=== PATIENT | male | born 1990 | race Caucasian/White ===

== ENCOUNTER 2019-08-17 06:30 | Emergency (ER) | payer SELFPAY ==
[2019-08-17 06:30] VITALS: BP 144/88; PULSE 92; RESP 18; TEMP 36.3; O2SAT 100; BMI 23.6
--- NOTE | 2019-08-17 06:39 | ECG_ITS ---
Measurements Intervals [place] Rate: 84 P: 79 MO: 143 QRS: 88 QRSD: 88 T: 62 QT: 361 QTc: 429 SINUS RHYTHM No previous ECG available for comparison Electronically Signed On 08-17-2019 19:21:17 LEARNING SUPPORT ASSISTANT by Acosta Oleary M.D. [email or web address]
--- NOTE | 2019-08-17 06:39 | XR_ITS ---
WS: [id number] CHEST 2 VIEWS HISTORY: chest pain COMPARISON: 10/24/2010 Lungs: Clear with no abnormality. No pleural effusion or pneumothorax. Cardiac size: Normal. Mediastinum/Aorta: Normal mediastinum. Bones: Normal. XR/XR chest 2V* [id number] IMPRESSION: Normal chest.
--- NOTE | 2019-08-17 06:42 | ED_ITS ---
HPI - Chest Pain General: Chief Complaint: Chest Pain Stated Complaint: chest pain Time Seen by Provider: 08/17/19 06:38 Review of Systems General: Reports: 10 or more systems reviewed and unremarkable except in HPI and below PFSH ED PFSH: Statuses (acute, chronic, etc) shown below reflect problem list status as previously entered and may not be historically accurate Social History Smoking and tobacco status: current every day smoker Physical Exam Const: COMMON NORMALS: average body habitus, oriented x3 and alert GENERAL APPEARANCE: well developed and anxious HENMT: COMMON NORMALS: normocephalic, head/scalp atraumatic, external ears normal and external nose normal HEAD & SCALP: normocephalic and atraumatic FACE & SINUS: normal facial exam NOSE: external nose normal EXTERNAL EAR: Yes external ears normal MOUTH: oral and palatal mucosa normal Neck/C-Spine: COMMON NORMALS: full ROM, no lymphadenopathy, supple, no meningeal signs and no JVD GENERAL: Yes normal visual inspection Chest: COMMONS NORMALS: inspection of chest normal and palpation of chest normal Resp: COMMON NORMALS: normal respiratory effort, no retractions, no use of accessory muscles, clear to auscultation bilaterally and percussion normal EFFORT & INSPECTION: Yes able to speak in complete sentences AUSCULTATION: clear to auscultation bilaterally PERCUSSION: percussion normal Cardio: COMMON NORMALS: no JVD, regular rate, regular rhythm, S1 normal heart sound and S2 normal heart sound JUGULAR VENOUS DISTENTION: no JVD RATE: regular rate RHYTHM: regular rhythm HEART SOUNDS: S1 normal and S2 normal GI: COMMON NORMALS: normal to inspection, nondistended, normoactive bowel sounds, soft to palpation, non-tender, no hepatosplenomegaly, no masses and no bruits PALPATION: Yes soft and Yes no hepatosplenomegaly : COMMON NORMALS: Yes no CVA tenderness BLADDER/KIDNEY EXAM: Yes no CVA tenderness Back/Pelvis: COMMON NORMALS: no CVA tenderness, thoracic and lumbar spine normal to inspection, no thoracic nor lumbar tenderness and thoraco-lumbar ROM normal Neuro: COMMON NORMALS: oriented x3 SENSORIUM/ORIENTATION: Yes alert MENINGEAL SIGNS: Yes no meningeal signs Psych: COMMON NORMALS: mental status grossly normal, thought process normal and cooperative MOOD & AFFECT: Yes anxious THOUGHT PROCESS: normal thought process Skin: COMMON NORMALS: no rashes or lesions noted, no wounds, skin turgor normal, no jaundice, no petechiae and no mottling GENERAL SKIN EXAM: no rashes or lesions noted and turgor normal Course Vital Signs: Vital signs: Vital Signs Temperature 97.3 F L 08/17/19 06:30 Pulse Rate 86 08/17/19 06:46 Respiratory Rate 21 H 08/17/19 06:46 Blood Pressure 144/88 08/17/19 06:46 Pulse Oximetry 100 08/17/19 06:48 MDM - Chest Pain Lab Data: Labs: Lab Results 08/17/19 08/17/19 08/17/19 Range/Units 06:55 07:35 07:35 WBC 9.1 (4.0-10.0) 10^3/ uL RBC 5.34 H (4.1-5.3) 10^6/u L Hgb 15.1 (11.7-16.6) g/dL Hct 45.3 (42.0-52.0) % MCV 84.8 (80-94) fL MCH 28.3 (28.0-34.0) pg MCHC 33.3 (30.0-36.0) g/dL RDW 14.7 (12.1-15.1) % Plt Count 218 (130-400) 10^3/c mm MPV 10.7 H (7.4-10.4) fL Neut % (Auto) 63.2 % Lymph % (Auto) 27.2 % [place] % (Auto) 8.0 % Eos % (Auto) 0.9 % Baso % (Auto) 0.5 % Neut # (Auto) 5.8 (1.8-7.7) 10^3/u L Lymph # (Auto) 2.5 (0.8-4.8) 10^3/u L [place] # (Auto) 0.7 (0.2-0.9) 10^3/u L Eos # (Auto) 0.1 (0.0-0.8) 10^3/u L Baso # (Auto) 0.1 (0.0-0.1) 10^3/u L Nucleated RBC % (a uto) 0 % Nucleated RBCs # 0.0 /100WBC D-Dimer <= 0.27 (0-0.59) ug/mIFE U Sodium 138 (136-145) mmol/L Potassium 3.6 (3.5-5.1) mmol/L Chloride 103 (98-107) mmol/L Carbon Dioxide 24 (22-29) mmol/L Anion Gap 14.6 (5-19) BUN 18 (6-20) mg/dL Creatinine 1.1 (0.7-1.2) mg/dL GFR Calculation 79.7 L (90-130) mL/min Glucose 98 (74-109) mg/dL Calcium 9.8 (8.6-10.0) mg/Dl Total Bilirubin 0.7 (0.15-1.2) mg/dL AST 15 (0-40) U/L ALT 11 (0-41) U/L Alkaline Phosphata se 46 (40-130) IU/L Total Protein 6.2 L (6.6-8.7) g/dL Albumin 4.4 (3.5-5.2) g/dL Globulin 1.8 (1.3-4.6) g/dL Discharge Plan Discharge Patient Disposition: Home, Self-Care Clinical Impression: Atypical chest pain, Costalchondritis Condition: Stable Prescriptions: New Robaxin-750 750 mg tablet 750 mg PO Q8H Qty: 14 RF: 0 Discharge Orders: Discharge Order (Routine); Ordered 08/17/19 Ordered By: Lorenzo Etienne Referrals: Fan Pablo Jr, MD [Primary Care Provider] - Discharge Diet: Usual diet Discharge Activity: Resume usual activity Coding Level of Care Code ED Assistant Professor Nurse Education for Eileen Cordon
[2019-08-17 06:46] VITALS: BP 144/88; PULSE 86; RESP 21; O2SAT 100
[2019-08-17 06:48] VITALS: O2SAT 100
[2019-08-17] MEDS: ketorolac 30 mg/mL INJ IVP (06:53)
[2019-08-17 07:20] LABS: Basophils # 0.1 10^3/uL (0.0-0.1); Basophils % 0.5 %; Eosinophils # 0.1 10^3/uL (0.0-0.8); Eosinophils % 0.9 %; Hematocrit 45.3 % (42.0-52.0); Hemoglobin 15.1 g/dL (11.7-16.6); Lymphocytes # 2.5 10^3/uL (0.8-4.8); Lymphocytes % 27.2 %; Mean Corpuscular HGB Conc 33.3 g/dL (30.0-36.0); Mean Corpuscular Hemoglobin 28.3 pg (28.0-34.0); Mean Corpuscular Volume 84.8 fL (80-94); Mean Platelet Volume 10.7 fL (7.4-10.4); Monocytes # 0.7 10^3/uL (0.2-0.9); Neutrophils # 5.8 10^3/uL (1.8-7.7); Neutrophils % 63.2 %; Nucleated Red Blood Cells % 0 %; Platelet Count 218 10^3/cmm (130-400); Red Blood Count 5.34 10^6/uL (4.1-5.3); Red Cell Distribution Width 14.7 % (12.1-15.1); White Blood Count 9.1 10^3/uL (4.0-10.0)
--- NOTE | 2019-08-17 07:36 | PC.NURSE ---
Lab as exited the room and stated the patient is upset over blood collection. Blood collected from IV site without incident. The patient would like to make a complaint. Charge nurse matthew notified.
[2019-08-17 07:54] LABS: D Dimer <= 0.27 ug/mIFEU (0-0.59)
[2019-08-17 07:56] LABS: Alanine Aminotransferase 11 U/L (0-41); Albumin Level 4.4 g/dL (3.5-5.2); Alkaline Phosphatase 46 IU/L (40-130); Anion Gap 14.6 (5-19); Aspartate Amino Transferase 15 U/L (0-40); Blood Urea Nitrogen 18 mg/dL (6-20); Calcium 9.8 mg/Dl (8.6-10.0); Carbon Dioxide 24 mmol/L (22-29); Chloride 103 mmol/L (98-107); Globulin 1.8 g/dL (1.3-4.6); Glomerular Filtration Rate 79.7 mL/min (90-130); Glucose 98 mg/dL (74-109); Potassium 3.6 mmol/L (3.5-5.1); Sodium 138 mmol/L (136-145); Total Bilirubin 0.7 mg/dL (0.15-1.2); Total Protein 6.2 g/dL (6.6-8.7)
== END 2019-08-17 08:39 | disposition home or self-care (01) ==
PROVIDERS: Emergency Provider Family Medicine; PCP Pediatrics Adolescent Medicine
DX: R07.89 Other chest pain (principal); M94.0 Chondrocostal junction syndrome [Tietze]; F17.210 Nicotine dependence, cigarettes, uncomplicated
CPT/HCPCS: 71046; 80053; 85025; 85378; 93005; 99281; J1885

== ENCOUNTER 2019-09-21 09:42 | Emergency (ER) | payer SELFPAY ==
[2019-09-21 10:05] VITALS: BP 159/91; PULSE 84; RESP 16; TEMP 36.6; O2SAT 98; BMI 22.8
--- NOTE | 2019-09-21 10:24 | W.ED.GENADLT ---
HPI - General Adult General: Chief complaint: Headache Stated complaint: Headache Time Seen by Provider: 09/21/19 10:15 History of Present Illness: HPI narrative: Patient complains of headache that started about 3 to 4 days ago. Got feel little bit better and then had episodes of vomiting last night. His daughter was sick with the same thing. Patient said he is no longer vomiting stomach feels fine but his headache was a lot worse today. Denies any neural type complaints. MD complaint: Headache Onset (ago): day(s) Severity: moderate Severity scale (1-10): 6 Quality: aching Pain Consistency: intermittent Relieving factors: none Associated symptoms: Reports headache(s) and vomiting (Last night and this morning is now better); Deny chest pain, dyspnea, nausea or rash Treatments prior to arrival: none Review of Systems Const: Denies: fever, chills or body aches Eyes: Denies: change in vision or blurry vision ENMT: Denies: throat pain or nasal congestion Card: Denies: chest pain or shortness of breath on exertion Resp: Denies: shortness of breath, productive cough or non-productive cough GI: Reports: vomiting (Last night and this morning is now better); Denies: abdominal pain or nausea : Denies: difficulty urinating Musc: Denies: extremity pain Skin/Breast: Denies: rash Neuro: Reports: headache Psych: Denies: anxiety or depression Saroj/Lymph: Denies: easy bruising PFSH ED PFSH: Statuses (acute, chronic, etc) shown below reflect problem list status as previously entered and may not be historically accurate Social History Smoking and tobacco status: current every day smoker Physical Exam Const: COMMON NORMALS: no apparent distress, average body habitus and oriented x3 HENMT: COMMON NORMALS: normocephalic HEAD & SCALP: normal to inspection and normocephalic FACE & SINUS: normal facial exam Eye: COMMON NORMALS: conjunctivae normal GENERAL EYE: normal appearance of both eyes CONJUNCTIVA: Yes conjunctivae normal Neck/C-Spine: COMMON NORMALS: no JVD Chest: COMMONS NORMALS: inspection of chest normal Resp: COMMON NORMALS: normal respiratory effort and clear to auscultation bilaterally AUSCULTATION: clear to auscultation bilaterally Cardio: COMMON NORMALS: no JVD, regular rate and regular rhythm RATE: regular rate RHYTHM: regular rhythm GI: COMMON NORMALS: normal to inspection, nondistended, normoactive bowel sounds Extremity: COMMON NORMALS: normal to inspection and full ROM Neuro: COMMON NORMALS: oriented x3 and CN's II-XII intact bilaterally Course Vital Signs: Vital signs: Vital Signs Temperature 97.9 F 09/21/19 10:05 Pulse Rate 84 09/21/19 10:05 Respiratory Rate 16 09/21/19 10:05 Blood Pressure 159/91 09/21/19 10:05 Pulse Oximetry 98 09/21/19 10:05 MDM - General Adult MDM Narrative: Medical decision making narrative: Patient states headache is much better he is ready go home. Also asking a note for being off work for a couple days. Discharge Plan Discharge Patient Disposition: Home, Self-Care Clinical Impression: Headache Qualifiers: Headache type: primary stabbing headache Qualified Code(s): G44.85 - Primary stabbing headache Condition: Stable Prescriptions: New ketorolac 10 mg tablet 10 mg PO TID PRN (Reason: pain) 3 Days Qty: 10 RF: 0 No Action Advil 200 mg Tablet 600 mg PO Q4H PRN (Reason: Pain) RF: 0 Referrals: Fan Pablo Jr, MD [Primary Care Provider] - Discharge Diet: As Directed Discharge Activity: Increase activity as tolerated Patient Instructions: Acute Headache (ED) Activity Restrictions/Additional Instructions: Follow-up with medical provider as directed. Take medications as prescribed. Return to the ER or your medical provider if condition worsens. Please read and understand discharge instructions. If any questions ask please. Stand Alone Forms: Work/School Release Coding Level of Care Code ED Wheat Grower for Chg Fwd Exam Problem Focused
[2019-09-21] MEDS: ondansetron 2 mg/ML SDV 2 mL 4 MG IM (10:46)
[2019-09-21] MEDS: ketorolac 60 mg/2 mL INJ IM (10:46)
[2019-09-21 11:33] VITALS: BP 120/81; PULSE 78; RESP 18; O2SAT 99
== END 2019-09-21 11:34 | disposition home or self-care (01) ==
PROVIDERS: Emergency Provider Nurse Practitioner Family; PCP Pediatrics Adolescent Medicine
DX: G44.85 Primary stabbing headache (principal); F17.210 Nicotine dependence, cigarettes, uncomplicated
CPT/HCPCS: 96372; 99281; 99283; J1885; J2405

== ENCOUNTER 2019-09-21 22:23 | Emergency (ER) | payer SELFPAY ==
[2019-09-21 22:33] VITALS: BP 153/92; PULSE 61; RESP 18; TEMP 36.9; O2SAT 99; BMI 24.3
--- NOTE | 2019-09-21 22:47 | ED_ITS ---
HPI - Dental/Oral General: Chief complaint: Dental/Oral Stated complaint: dental pain Time Seen by Provider: 09/21/19 22:35 History of Present Illness: HPI Narrative: Patient is a 20-year-old male with right lower jaw pain. Pain started about a week ago and has been on and off but got significantly more painful today. Patient was seen here in the ED earlier this morning for some migraine. He says his migraine got better after treatment and then he noticed his jaw pain. Denies any swelling causing airway obstruction. Denies any Fever, chills, shortness of breath, chest pain, Abdominal pain, nausea, vomiting, diarrhea, dysuria, hematuria. Review of Systems General: Reports: 10 or more systems reviewed and unremarkable except in HPI and below PFSH ED PFSH: Statuses (acute, chronic, etc) shown below reflect problem list status as previously entered and may not be historically accurate Social History Smoking and tobacco status: current every day smoker Physical Exam Narrative: EXAM NARRATIVE: Patient is a 28-year-old male who is in no signs of acute respiratory distress. He is in some pain and keeps holding his right lower jaw with hands. Upon examining his mouth he has multiple dental caries and multiple teeth showing cavities and signs of decay. The right molar has extensive decay and is the cause of some gum swelling and also where he says his pain is. Const: COMMON NORMALS: oriented x3 HENMT: COMMON NORMALS: normocephalic HEAD & SCALP: normocephalic MOUTH: oral and palatal mucosa normal TEETH & GINGIVA: Yes caries, Yes gingiva abnormal (Right Lower jaw) edematous and tender and Yes poor dentition THROAT: posterior oropharynx normal and uvula midline Neck/C-Spine: COMMON NORMALS: supple GENERAL: Yes normal visual inspection Resp: COMMON NORMALS: normal respiratory effort, no retractions, no use of accessory muscles and clear to auscultation bilaterally AUSCULTATION: clear to auscultation bilaterally Cardio: COMMON NORMALS: regular rate, regular rhythm, S1 normal heart sound, S2 normal heart sound, no gallops, no clicks, no murmurs and peripheral pulses 2+ throughout RATE: regular rate RHYTHM: regular rhythm HEART SOUNDS: S1 normal and S2 normal PERIPHERAL PULSES: pulses 2+ throughout GI: COMMON NORMALS: normal to inspection, nondistended, normoactive bowel sounds, soft to palpation, non-tender and no masses PALPATION: Yes soft : COMMON NORMALS: Yes no CVA tenderness BLADDER/KIDNEY EXAM: Yes no CVA tenderness Back/Pelvis: COMMON NORMALS: no CVA tenderness Extremity: COMMON NORMALS: normal to inspection Neuro: COMMON NORMALS: oriented x3 and moves all extremities Skin: COMMON NORMALS: no rashes or lesions noted GENERAL SKIN EXAM: no rashes or lesions noted Course ED course: I gave patient a list of a couple dental offices to call tomorrow morning to try to set up an appointment. Vital Signs: Vital signs: Vital Signs Temperature 98.4 F 09/21/19 22:33 Pulse Rate 61 09/21/19 22:33 Respiratory Rate 18 09/21/19 22:33 Blood Pressure 153/92 09/21/19 22:33 Pulse Oximetry 99 09/21/19 22:33 Discharge Plan Discharge Patient Disposition: Home, Self-Care Clinical Impression: Tooth decay Condition: Stable Prescriptions: New clindamycin HCl 150 mg capsule 300 mg PO Q6H 7 Days Qty: 56 RF: 0 No Action ketorolac 10 mg tablet 10 mg PO TID PRN (Reason: pain) 3 Days Qty: 10 RF: 0 Advil 200 mg Tablet 600 mg PO Q4H PRN (Reason: Pain) RF: 0 Discharge Orders: Discharge Order (Routine); Ordered 09/21/19 Ordered By: Pan Bosch Referrals: Fan Pablo Jr, MD [Primary Care Provider] - Discharge Diet: Regular Discharge Activity: Resume usual activity Patient Instructions: Dental Caries (ED), Dental Abscess Activity Restrictions/Additional Instructions: Called dental office tomorrow to set up an appointment for evaluation. Take antibiotic as prescribed. Take ibuprofen or Aleve as needed for pain. Apply ice on jaw to help with pain and swelling. Return to ED if swelling worsens and starts obstructing the airway. Discharge Date/Time: 09/21/19 23:16 Coding Level of Care Code ED Sed Special Education Teacher for Eileen Cordon Exam Problem Focused
[2019-09-21] MEDS: HYDROcodone-acetaminophen 7.5-325 mg Tablet 1 TAB PO (23:07)
--- NOTE | 2019-09-21 23:16 | PC.NURSE ---
Patient becoming very loud. This nurse heard patient down hallway cussing at nurse for not getting his pain medication fast enough. Patient slammed door to his room.
== END 2019-09-21 23:16 | disposition home or self-care (01) ==
PROVIDERS: Emergency Provider Physician Assistant; PCP Pediatrics Adolescent Medicine
DX: K02.9 Dental caries, unspecified (principal); F17.200 Nicotine dependence, unspecified, uncomplicated
CPT/HCPCS: 99281; 99283

== ENCOUNTER 2019-12-08 10:10 | Emergency (ER) | payer SELFPAY ==
--- NOTE | 2019-12-08 10:24 | ED_ITS ---
HPI - Extremity Injury (Upper) General: Chief Complaint: Extremity Injury, Upper Stated Complaint: INJURY TO LEFT ELBOW Time Seen by Provider: 12/08/19 10:12 Source: patient Mode of arrival: ambulatory Limitations: no limitations History of Present Illness: HPI narrative: Patient is a 29-year-old male who presents to ED today with complaints of left elbow pain. Patient states yesterday while at work he was moving pallet of wood and when he turned around he struck his left elbow against a piece of wood. Did not sustain any abrasions or lacerations. Has noticed pain and swelling to the area. MD complaint: injury to: left and elbow Onset (ago): day(s) Other Extremity Injury: Left: elbow Other injuries: none Place: work Severity: moderate Relieving factors: immobilization Exacerbating factors: movement of extremity Context: direct blow Associated symptoms: Reports no associated symptoms; Denies neck pain or weakness in extremities Review of Systems Const: Denies: fever or chills GI: Denies: nausea or vomiting Musc: Reports: joint pain and joint swelling; Denies: neck pain, back pain, extremity pain or extremity swelling Neuro: Denies: numbness in extremities, weakness in extremities or changes in sensation PFSH ED PFSH: Social History Smoking and tobacco status: current every day smoker Physical Exam Const: COMMON NORMALS: no apparent distress, average body habitus, oriented x3, no limitations, healthy appearing, alert and well nourished Extremity: OTHER: pt has swelling/tenderness to lateral aspect of L elbow; maintains full passive ROM; N/V intact; no abrasions/lacerations noted; no evidence for septic joint Neuro: COMMON NORMALS: oriented x3 SENSORIUM/ORIENTATION: Yes alert Course Vital Signs: Vital signs: Vital Signs Pulse Rate 88 12/08/19 10:35 Respiratory Rate 17 12/08/19 10:26 Blood Pressure 158/87 12/08/19 10:26 Pulse Oximetry 97 12/08/19 10:35 MDM - Extremity Injury (Upper) Imaging Data^: L elbow XR: Radiologist's impression: [address] [address] XRay Report Signed Patient: Sam Barrios Unit #: [id number] : 1990 Age/Sex: 29 / M ADM Date: 12/08/19 Loc: ER Room/Bed: Attending Dr: Ordering Provider/Ordering MD: Alyce Prajapati Date of Service: 12/08/19 Procedure(s): XR elbow LT min 3V* [id number] Accession Number(s): [id number] Report Number: [id number] WS: [id number] LEFT ELBOW: 3 VIEW(S) TECHNIQUE: AP, oblique and lateral. HISTORY: trauma COMPARISON: None available. No acute fractures or dislocation. No joint effusion. No soft tissue abnormality. XR/XR elbow LT min 3V* [id number] IMPRESSION: Normal LEFT elbow. Dictated By: Elena Alexis DO Signed By: Elena Alexis DO Signed Date/Time: 12/08/19 1104 DD/ 1103 Discharge Plan Discharge Patient Disposition: Home, Self-Care Clinical Impression: Contusion of elbow Qualifiers: Encounter type: initial encounter Laterality: left Qualified Code(s): S50.02XA - Contusion of left elbow, initial encounter Condition: Stable Prescriptions: No Action ibuprofen [Advil] 200 mg Tablet 600 mg PO Q4H PRN (Reason: Pain) RF: 0 Discharge Orders: Discharge Order (Routine); Ordered 12/08/19 Ordered By: Alyce Prajapati Referrals: aFn Pablo Jr, MD [Primary Care Provider] - Discharge Diet: Usual diet Discharge Activity: Increase activity as tolerated Patient Instructions: Contusion, RICE Therapy (ED) Stand Alone Forms: Work/School Release Coding Level of Care Code ED Assistant Guest Services Manager for Eileen Cordon
[2019-12-08 10:26] VITALS: BP 158/87; PULSE 96; RESP 17; O2SAT 97; BMI 23.1
[2019-12-08 10:35] VITALS: PULSE 88; O2SAT 97
--- NOTE | 2019-12-08 10:35 | XR_ITS ---
WS: [id number] LEFT ELBOW: 3 VIEW(S) TECHNIQUE: AP, oblique and lateral. HISTORY: trauma COMPARISON: None available. No acute fractures or dislocation. No joint effusion. No soft tissue abnormality. XR/XR elbow LT min 3V* [id number] IMPRESSION: Normal LEFT elbow.
[2019-12-08 12:13] VITALS: BP 114/65; PULSE 75; RESP 16; O2SAT 98
== END 2019-12-08 12:08 | disposition home or self-care (01) ==
PROVIDERS: Emergency Provider Physician Assistant; PCP Pediatrics Adolescent Medicine
DX: S50.02XA Contusion of left elbow, initial encounter (principal); W22.8XXA Striking against or struck by other objects, initial encounter; F17.210 Nicotine dependence, cigarettes, uncomplicated
CPT/HCPCS: 12345; 73080; 99281; 99282

== ENCOUNTER 2020-01-01 09:20 | Emergency (ER) | payer SELFPAY ==
[2020-01-01 09:23] VITALS: BP 170/101; PULSE 101; RESP 16; TEMP 36.9; O2SAT 100; BMI 23.1
[2020-01-01 09:31] VITALS: PULSE 105; RESP 17
--- NOTE | 2020-01-01 09:31 | ED_ITS ---
HPI - Dental/Oral General: Chief complaint: Dental/Oral Stated complaint: DENTAL PAIN Time Seen by Provider: 01/01/20 09:21 Source: patient Mode of arrival: ambulatory Limitations: no limitations History of Present Illness: HPI Narrative: Patient is a 29-year-old male who presents to ED today with a complaint of dental pain. Patient states a few days ago he had a tooth to his left upper break. He states he has had pain since then and woke up this morning with left-sided facial swelling. Patient is not been running fevers. He has no neck swelling or trouble swallowing. Denies eye pain/painful EOMs. No headache/neck pain. MD Complaint: tooth pain Teeth map: 1. broke tooth; mild facial swelling-no abscess Duration: constant Relieving factors: nothing Exacerbating factors: nothing Context: trauma (mechanism) Associated symptoms: Denies ear or mastoid pain, fever(s) or odynophagia Review of Systems Const: Denies: fever(s), chills, body aches, fatigue or malaise Eyes: Denies: change in vision, blurry vision, blind spots, photophobia, eye discomfort, floaters or seeing flashes ENMT: Reports: dental pain; Denies: throat pain, uvular edema, enlarged tonsils, odynophagia, swelling of lips/tongue, oral sores, ear or mastoid pain, nasal discharge, nasal congestion or nasal obstruction Card: Denies: chest pain Resp: Denies: dyspnea GI: Denies: nausea or vomiting Musc: Denies: neck pain Skin/Breast: Denies: rash Neuro: Denies: headache(s) PFS ED PFSH: Social History Smoking and tobacco status: current every day smoker Physical Exam Const: COMMON NORMALS: no acute distress, average body habitus, patient oriented x3, no limitations, healthy appearing, alert and well nourished HENMT: COMMON NORMALS: normocephalic, atraumatic, hearing grossly normal bilaterally, external ears normal, EAC's normal, TM's normal bilaterally, Normal external nose present, Normal nasal mucous membranes and turbinates present, moist oral mucous membranes, oropharynx normal and gingiva normal HEAD & SCALP: normal to inspection, normocephalic and atraumatic FACE & SINUS: other (mild swelling overlying L maxillary region; no obvious abscess formation) NOSE: Normal external nose present, Normal nares present and Normal nasal mucous membranes and turbinates present EXTERNAL EAR: Yes external ears normal EXTERNAL AUDITORY CANAL: EAC's normal TYMPANIC MEMBRANE: TM's normal bilaterally MOUTH: Normal oral and palatal mucosa present, lip normal, tongue normal and Normal salivary glands and ducts present TEETH & GINGIVA: Yes poor dentition and Yes other (broken tooth #11) THROAT: posterior oropharynx normal, tonsils normal and uvula midline; no uvular edema Neck/C-Spine: GENERAL: Yes normal visual inspection and No anterior neck swelling Resp: COMMON NORMALS: normal respiratory effort Cardio: COMMON NORMALS: regular rate and regular rhythm RATE: regular rate RHYTHM: regular rhythm Neuro: COMMON NORMALS: patient oriented x3 SENSORIUM/ORIENTATION: Yes alert Course Vital Signs: Vital signs: Vital Signs Temperature 98.4 F 01/01/20 09:23 Pulse Rate 108 H 01/01/20 09:39 Respiratory Rate 16 01/01/20 09:39 Blood Pressure 159/92 01/01/20 09:39 Pulse Oximetry 100 01/01/20 09:39 Discharge Plan Discharge Patient Disposition: Home, Self-Care Clinical Impression: Dental caries, Dental infection Broken tooth Qualifiers: Encounter type: initial encounter Fracture type: closed Qualified Code(s): S02.5XXA - Fracture of tooth (traumatic), initial encounter for closed fracture Condition: Stable Prescriptions: New Peridex 0.12 % mouthwash 15 ml BUCCAL BID Qty: 118 RF: 0 penicillin V potassium 500 mg tablet 500 mg PO Q8H 7 Days Qty: 21 RF: 0 No Action ibuprofen [Advil] 200 mg Tablet 600 mg PO Q4H PRN (Reason: Pain) RF: 0 Discharge Orders: Discharge Order (Routine); Ordered 01/01/20 Ordered By: Alyce Prajapati Referrals: Fan Pablo Jr, MD [Primary Care Provider] - Patient Instructions: Dental Caries (ED), Toothache (ED), Dental Abscess Activity Restrictions/Additional Instructions: Please follow up with a dentist as soon as possible-dental resource handout provided to you. Return to ED for worsening pain/swelling or any other concerns you may have. Coding Level of Care Code ED Machine Long Goods Helper for Eileen Cordon
[2020-01-01 09:39] VITALS: BP 159/92; PULSE 108; RESP 16; O2SAT 100
== END 2020-01-01 09:39 | disposition home or self-care (01) ==
LOC: ER 09:52
PROVIDERS: Emergency Provider Physician Assistant; PCP Pediatrics Adolescent Medicine
DX: K02.9 Dental caries, unspecified (principal); K04.7 Periapical abscess without sinus; S02.5XXA Fracture of tooth (traumatic), initial encounter for closed fracture; X58.XXXA Exposure to other specified factors, initial encounter; F17.210 Nicotine dependence, cigarettes, uncomplicated
CPT/HCPCS: 12345; 99282

== ENCOUNTER 2022-06-09 21:45 | Emergency (ER) | payer SELFPAY ==
[2022-06-09 21:57] VITALS: PULSE 74; RESP 16; TEMP 36.8; O2SAT 99
--- NOTE | 2022-06-09 22:09 | XRR_ITS ---
PROCEDURE INFORMATION: Exam: XR Left Foot Exam date and time: 06/09/2022 10:29 PM Age: 31 years old Clinical indication: Pain; Foot; Left; Additional info: Kicked dog and now has left foot pain TECHNIQUE: Imaging protocol: Radiologic exam of the Left foot. Views: 3 or more views. COMPARISON: No relevant prior studies available. FINDINGS: Bones/joints: Normal. Soft tissues: Normal. XR/XR foot LT min 3V* [id number] IMPRESSION: No acute findings.
--- NOTE | 2022-06-09 22:37 | ED_ITS ---
HPI - Extremity Problem General: Chief complaint: Extremity Injury, Lower Stated complaint: left foot injury Time Seen by Provider: 06/09/22 22:09 History of Present Illness: Patient is a 31-year-old male comes to the ED with left foot pain. Injury occurred tonight prior to arrival. Patient says he was trying to break up a fight between his pitbull and another dog. He kicked his dog and head with his left foot. Since injury he is having pain in his left foot and unable to weight-bear on left foot. He rates his pain currently a 7 out of 10. Pain is located around the midfoot region. Associated symptoms: Deny chest pain, fever(s) or rash Review of Systems Const: Denies: fever(s), chills or fatigue Eyes: Denies: change in vision or eye discomfort ENMT: Denies: throat pain, odynophagia, nasal discharge or nasal congestion Card: Denies: chest pain, palpitations, edema, swelling of feet/ankles, dyspnea on exertion or orthopnea Resp: Denies: dyspnea, productive cough or non-productive cough GI: Denies: abdominal pain, nausea, vomiting, diarrhea, constipation or hematochezia : Denies: flank pain, difficulty urinating, dysuria or hematuria Musc: Reports: extremity pain (Left foot pain); Denies: neck pain, back pain or extremity swelling Skin/Breast: Denies: rash or new lesions Neuro: Denies: headache(s), numbness in extremities or weakness in extremities PFS ED PFSH: Medical History No pertinent family history Surgical History No pertinent past surgical history Social History Smoking and tobacco status: current every day smoker Physical Exam Const: COMMON NORMALS: no acute distress, patient oriented x3 and alert GENERAL APPEARANCE: cooperative and comfortable HENMT: COMMON NORMALS: normocephalic HEAD & SCALP: normocephalic MOUTH: Normal oral and palatal mucosa present THROAT: posterior oropharynx normal and uvula midline Neck/C-Spine: COMMON NORMALS: supple GENERAL: Yes normal visual inspection Resp: COMMON NORMALS: normal respiratory effort, No retractions, No use of accessory muscles and clear to auscultation bilaterally AUSCULTATION: clear to auscultation bilaterally Cardio: COMMON NORMALS: regular rate, regular rhythm, S1 normal heart sound present, S2 normal heart sound present, No gallops present (Cardio), No clicks present (Cardio), No murmurs present (Cardio) and Peripheral pulses 2+ throughout RATE: regular rate RHYTHM: regular rhythm HEART SOUNDS: S1 normal heart sound present and S2 normal heart sound present PERIPHERAL PULSES: Peripheral pulses 2+ throughout GI: COMMON NORMALS: Normal to inspection, nondistended, normoactive bowel sounds present, Soft to palpation, non-tender and no masses PALPATION: Yes Soft to palpation : COMMON NORMALS: Yes no CVA tenderness BLADDER/KIDNEY EXAM: Yes no CVA tenderness Back/Pelvis: COMMON NORMALS: no CVA tenderness Extremity: NARRATIVE EXTREMITY EXAM: Left foot?no ecchymosis or swelling noted. Tenderness over midfoot region. Neurovascular intact. Neuro: COMMON NORMALS: patient oriented x3 SENSORIUM/ORIENTATION: Yes alert GAIT: Yes Normal gait present Skin: GENERAL SKIN EXAM: dry skin Course Vital Signs: Vital signs: Vital Signs Temperature 98.2 F 06/09/22 21:57 Pulse Rate 74 06/09/22 21:57 Respiratory Rate 16 06/09/22 21:57 Pulse Oximetry 99 06/09/22 21:57 MDM - Extremity (Nontraumatic) Medical Decision Making Patient is a 31-year-old male comes to the ED with left foot pain. Patient says earlier tonight he had to kick his dog while trying to break up a fight between his dog and another dog. He has pain in the midfoot region. Vitals are stable. Exam of patient is benign and his foot looks completely normal with no swelling or ecchymosis noted. Neurovascular tact. X-ray of left foot shows no acute fractures or findings. Patient was given a dose of Toradol here in the ED and he was diagnosed with injury of left foot. Told to follow-up with his PCP within the next week for reevaluation. He was discharged home with some crutches to help with ambulation for the next 2 to 3 days and told advance weightbearing as tolerated after that. Rest, ice and elevate left foot. He was discharged with a prescription for ibuprofen 800 mg for pain. Patient understood and agreed with plan. Lab Data Radiology Impressions Foot X-Ray 06/09/22 22:09 IMPRESSION: No acute findings. Discharge Plan Discharge Patient Disposition: Home Clinical Impression: Injury of foot, left Qualifiers: Encounter type: initial encounter Qualified Code(s): S99.922A - Unspecified injury of left foot, initial encounter Condition: Stable Prescriptions: New ibuprofen 800 mg tablet 800 mg PO Q8H PRN (Reason: pain) Qty: 20 0RF No Action Peridex 0.12 % mouthwash 15 ml BUCCAL BID Qty: 118 0RF ibuprofen [Advil] 200 mg Tablet 600 mg PO Q4H PRN (Reason: Pain) Discharge Orders: Discharge ED (Routine); Ordered 06/09/22 Ordered By: Pan Bosch Referrals: Fan Pablo Jr, MD [Primary Care Provider] - Discharge Diet: Regular Discharge Activity: Increase activity as tolerated and Use walker/crutches as instructed Activity Restrictions/Additional Instructions: Follow-up with medical provider as directed. Use crutches and limit weightbearing for the next 2 to 3 days and slowly advance weightbearing as tolerated. Rest, ice and elevate left foot. Take medications as prescribed. Return to the ER or your medical provider if condition worsens. Please read and understand discharge instructions. Thank you for choosing [facility] for your healthcare needs today. Please realize this is an emergency room and that we are providing you with a medical screening exam and this may not be complete and all inclusive of all the testing and or work up that you may need to determine your ailment or severity of your illness. It is very important that you follow up as instructed or that you return to the Emergency Department should you have concerns or if your condition changes or worsens in any way. 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
--- NOTE | 2022-06-09 23:18 | PC.NURSE ---
PT LEFT PRIOR TO RECEIVING TORADOL SHOT OR CRUTCHES
== END 2022-06-09 23:19 | disposition home or self-care (01) ==
PROVIDERS: Emergency Provider Physician Assistant; PCP Pediatrics Adolescent Medicine
DX: S99.922A Unspecified injury of left foot, initial encounter (principal); F17.210 Nicotine dependence, cigarettes, uncomplicated; W22.8XXA Striking against or struck by other objects, initial encounter
CPT/HCPCS: 73630; 99283; 99284

== ENCOUNTER 2022-08-26 14:11 | Emergency (ER) | payer SELFPAY ==
[2022-08-26 14:13] VITALS: BP 154/102; PULSE 78; RESP 18; TEMP 36.5; O2SAT 99
[2022-08-26 17:06] LABS: Basophils # 0.1 10^3/uL (0.0-0.1); Basophils % 0.7 %; Eosinophils # 0.1 10^3/uL (0.0-0.8); Eosinophils % 1.7 %; Hematocrit 50.7 % (42.0-52.0); Lymphocytes # 2.3 10^3/uL (0.8-4.8); Lymphocytes % 31.8 %; Mean Corpuscular HGB Conc 33.5 g/dL (30.0-36.0); Mean Corpuscular Hemoglobin 28.5 pg (28.0-34.0); Mean Corpuscular Volume 84.9 fl (80-94); Mean Platelet Volume 9.2 fL (7.4-10.4); Monocytes % 13.4 %; Neutrophils # 3.79 10^3/uL (1.8-7.7); Neutrophils % 52.1 %; Nucleated Red Blood Cells % 0 %; Platelet Count 241 10^3/cmm (130-400); Red Blood Count 5.97 10^6/uL (4.1-5.3); White Blood Count 7.3 10^3/uL (4.0-10.0)
--- NOTE | 2022-08-26 17:09 | W.ED.ABDPA2 ---
HPI - Abdominal Pain General: Chief Complaint: Abdominal Pain Stated Complaint: abd pain Time Seen by Provider: 08/26/22 17:05 History of Present Illness: Patient is a 31-year-old male who comes to the ED with abdominal pain. Pain started approximately 3 days ago. He states that when his pain started initially he was having nausea and had multiple episodes of emesis that he described throwing up bile. He has not had much of an appetite since onset of symptoms and has been eating mostly soups. Abdominal pain is rated a 5 out of 10 and is generalized throughout the central part of the abdomen. Endorses having diarrhea since symptoms started. Denies any fevers, dysuria or hematuria. Denies any past abdominal surgeries. Patient states has had this pain once before and it resolved after putting a heating pad on his stomach, but this time it did not help. Associated Symptoms: Reports diarrhea, nausea and vomiting; Denies chills, constipation, dysuria, fever(s), hematochezia and hematuria Review of Systems Const: Denies: fever(s), chills or fatigue Eyes: Denies: change in vision or eye discomfort ENMT: Denies: throat pain, odynophagia, nasal discharge or nasal congestion Card: Denies: chest pain, palpitations, edema, swelling of feet/ankles, dyspnea on exertion or orthopnea Resp: Denies: dyspnea, productive cough or non-productive cough GI: Reports: abdominal pain, nausea, vomiting and diarrhea; Denies: constipation or hematochezia : Denies: flank pain, difficulty urinating, dysuria or hematuria Musc: Denies: neck pain, back pain or extremity swelling Skin/Breast: Denies: rash or new lesions Neuro: Denies: headache(s), numbness in extremities or weakness in extremities PFS ED PFSH: Medical History No pertinent family history Surgical History No pertinent past surgical history Social History Smoking and tobacco status: current every day smoker Physical Exam Const: COMMON NORMALS: patient oriented x3 and alert GENERAL APPEARANCE: cooperative HENMT: COMMON NORMALS: normocephalic HEAD & SCALP: normocephalic MOUTH: Normal oral and palatal mucosa present THROAT: posterior oropharynx normal and uvula midline Neck/C-Spine: COMMON NORMALS: supple GENERAL: Yes normal visual inspection Resp: COMMON NORMALS: normal respiratory effort, No retractions, No use of accessory muscles and clear to auscultation bilaterally AUSCULTATION: clear to auscultation bilaterally Cardio: COMMON NORMALS: regular rate, regular rhythm, S1 normal heart sound present, S2 normal heart sound present, No gallops present (Cardio), No clicks present (Cardio), No murmurs present (Cardio) and Peripheral pulses 2+ throughout RATE: regular rate RHYTHM: regular rhythm HEART SOUNDS: S1 normal heart sound present and S2 normal heart sound present PERIPHERAL PULSES: Peripheral pulses 2+ throughout GI: COMMON NORMALS: Normal to inspection, nondistended, normoactive bowel sounds present, Soft to palpation, non-tender and no masses PALPATION: Yes Soft to palpation and Yes Tenderness to palpation present (GI) (Generalized tenderness throughout central abdomen) OTHER: No localized tenderness in abdomen. : COMMON NORMALS: Yes no CVA tenderness BLADDER/KIDNEY EXAM: Yes no CVA tenderness Back/Pelvis: COMMON NORMALS: no CVA tenderness Extremity: COMMON NORMALS: normal to inspection Neuro: COMMON NORMALS: patient oriented x3 SENSORIUM/ORIENTATION: Yes alert GAIT: Yes Normal gait present Skin: GENERAL SKIN EXAM: dry skin Course Vital Signs: Vital signs: Vital Signs Temperature 97.7 F 08/26/22 14:13 Pulse Rate 78 08/26/22 14:13 Respiratory Rate 18 08/26/22 14:13 Blood Pressure 154/102 08/26/22 14:13 Pulse Oximetry 99 08/26/22 14:13 Oxygen Delivery Me thod 08/26/22 14:13 MDM - Abdominal Pain Medical Decision Making Patient is a 31-year-old male who comes to the ED with abdominal pain. Pain started approximately 3 days ago. He states that when his pain started initially he was having nausea and had multiple episodes of emesis that he described throwing up bile. He has not had much of an appetite since onset of symptoms and has been eating mostly soups. Vitals are stable. Patient appears nontoxic in no acute distress or pain. He has generalized tenderness to palpation at the center of his abdomen but no localized tenderness. Rest of exam is benign. Labs are unremarkable. CT of abdomen shows some signs of gastroenteritis and mesenteric adenitis. Patient was given IV fluids, pain meds and nausea meds and symptoms improved. Patient was diagnosed with viral gastroenteritis and was discharged home with a prescription for dicyclomine and Zofran. Told to follow-up with PCP in the next week for reevaluation. Return to ED precautions given. Patient understood and agreed with plan. Lab Data I reviewed the patient's lab results. 08/26/22 16:58 08/26/22 16:58 Labs/Radiology: Radiology Impressions Abdomen/Pelvis CT 08/26/22 17:40 IMPRESSION: 1. Suggestion of mild increased mesenteric lymph nodes without significant overall enlargement, consider mesenteric adenitis. 2. Some fluid is seen within bowel, which can be associated with gastroenteritis or diarrhea. 3. No CT findings to indicate appendicitis or other acute findings. Laboratory Results WBC 7.3 10^3/uL (4.0-10.0) 08/26/22 16:58 RBC 5.97 10^6/uL (4.1-5.3) H 08/26/22 16:58 Hgb 17.0 g/dL (11.7-16.6) H 08/26/22 16:58 Hct 50.7 % (42.0-52.0) 08/26/22 16:58 MCV 84.9 fl (80-94) 08/26/22 16:58 MCH 28.5 pg (28.0-34.0) 08/26/22 16:58 MCHC 33.5 g/dL (30.0-36.0) 08/26/22 16:58 RDW 14.0 % (12.1-15.1) 08/26/22 16:58 Plt Count 241 10^3/cmm (130-400) 08/26/22 16:58 MPV 9.2 fL (7.4-10.4) 08/26/22 16:58 Neut % (Auto) 52.1 % 08/26/22 16:58 Lymph % (Auto) 31.8 % 08/26/22 16:58 Saline % (Auto) 13.4 % 08/26/22 16:58 Eos % (Auto) 1.7 % 08/26/22 16:58 Baso % (Auto) 0.7 % 08/26/22 16:58 Neut # (Auto) 3.79 10^3/uL (1.8-7.7) 08/26/22 16:58 Lymph # (Auto) 2.3 10^3/uL (0.8-4.8) 08/26/22 16:58 Saline # (Auto) 1.0 10^3/uL (0.2-0.9) H 08/26/22 16:58 Eos # (Auto) 0.1 10^3/uL (0.0-0.8) 08/26/22 16:58 Baso # (Auto) 0.1 10^3/uL (0.0-0.1) 08/26/22 16:58 Nucleated RBC % (auto) 0 % 08/26/22 16:58 Nucleated RBCs # 0.0 /100WBC 08/26/22 16:58 Sodium 134 mmol/L (136-145) L 08/26/22 16:58 Potassium 4.2 mmol/L (3.5-5.1) 08/26/22 16:58 Chloride 96 mmol/L (98-107) L 08/26/22 16:58 Carbon Dioxide 24 mmol/L (22-29) 08/26/22 16:58 Anion Gap 18.2 (5-19) 08/26/22 16:58 BUN 23 mg/dL (6-20) H 08/26/22 16:58 Creatinine 1.2 mg/dL (0.7-1.2) 08/26/22 16:58 GFR Calculation 70.6 mL/min (90-130) L 08/26/22 16:58 Glucose 80 mg/dL (65-115) 08/26/22 16:58 Calculated Osmolality 281 mOsm/kg (285-295) L 08/26/22 16:58 Calcium 9.6 mg/dL (8.5-10.5) 08/26/22 16:58 Total Bilirubin 0.5 mg/dL (0.15-1.2) 08/26/22 16:58 AST 18 U/L (0-40) 08/26/22 16:58 ALT 14 U/L (0-41) 08/26/22 16:58 Alkaline Phosphatase 64 U/L (40-130) 08/26/22 16:58 Total Protein 7.9 g/dL (6.6-8.7) 08/26/22 16:58 Albumin 4.8 g/dL (3.5-5.2) 08/26/22 16:58 Globulin 3.1 g/dL (1.3-4.6) 08/26/22 16:58 Lipase 20 U/L (13-60) 08/26/22 16:58 Urine Color Yellow (Yellow) 08/26/22 17:00 Urine Appearance Clear (CLEAR) 08/26/22 17:00 Urine pH 5 (5-7) 08/26/22 17:00 Ur Specific [place] 1.025 (1.005-1.030) 08/26/22 17:00 Urine Protein Trace (Negative) 08/26/22 17:00 Urine Glucose (UA) Norm (Normal) 08/26/22 17:00 Urine Ketones 1+ (Negative) H 08/26/22 17:00 Urine Blood Neg (Negative) 08/26/22 17:00 Urine Nitrate Negative (Negative) 08/26/22 17:00 Urine Bilirubin 1+ (Negative) H 08/26/22 17:00 Urine Urobilinogen Norm mg/dL (Negative) 08/26/22 17:00 Ur Leukocyte Esterase Negative (Negative) 08/26/22 17:00 Urine RBC None /hpf (0-2) 08/26/22 17:00 Urine WBC 0-4 /hpf (0-5) H 08/26/22 17:00 Ur Squamous Epith Cells None /hpf (0-5) 08/26/22 17:00 Amorphous Sediment Not Reportable 08/26/22 17:00 Urine Bacteria Trace /hpf (NONE) 08/26/22 17:00 Urine Mucus 2+ /hpf 08/26/22 17:00 Discharge Plan Discharge Patient Disposition: Home Clinical Impression: Viral gastroenteritis Condition: Stable Prescriptions: New dicyclomine 20 mg tablet 20 mg PO TID PRN (Reason: Abdominal pain/cramping and diarrhea) Qty: 20 0RF ondansetron 4 mg tablet,disintegrating 4 mg PO Q8H PRN (Reason: nausea and vomiting) Qty: 20 0RF No Action Peridex 0.12 % mouthwash 15 ml BUCCAL BID Qty: 118 0RF ibuprofen [Advil] 200 mg Tablet 600 mg PO Q4H PRN (Reason: Pain) ibuprofen 800 mg tablet 800 mg PO Q8H PRN (Reason: pain) Qty: 20 0RF Discharge Orders: Discharge ED (Routine); Ordered 08/26/22 Ordered By: Pan Bosch Discharge Diet: Advance as tolerated and Clear Liquid Discharge Activity: Increase activity as tolerated Patient Instructions: Gastroenteritis (DC) Activity Restrictions/Additional Instructions: Follow-up with medical provider as directed in the next 5 to 7 days for reevaluation. Take medications as prescribed. Continue clear liquid diet for the next 12 to 24 hours and slowly advance diet as tolerated. Drink plenty fluids and stay hydrated. Return to the ER or your medical provider if condition worsens. Please read and understand discharge instructions. Thank you for choosing [facility] [place] for your healthcare needs today. Please realize this is an emergency room and that we are providing you with a medical screening exam and this may not be complete and all inclusive of all the testing and or work up that you may need to determine your ailment or severity of your illness. It is very important that you follow up as instructed or that you return to the Emergency Department should you have concerns or if your condition changes or worsens in any way. 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
[2022-08-26 17:36] LABS: Blood Urine Neg (Negative); Glucose Urine UA Norm (Normal); Ketones Urine 1+ (Negative); Nitrate Urine Negative (Negative); Protein Urine Trace (Negative); Specific Gravity, Urine 1.025 (1.005-1.030); Urine Appearance Clear (CLEAR); Urine Color Yellow (Yellow); pH Urine 5 (5-7)
[2022-08-26 17:37] LABS: Add Urine Culture? No; Add Urine Microscopic? YES; Bacteria Urine TRACE /hpf; Bilirubin Urine 1+ (Negative); Leukocyte Esterase Urine Negative (Negative); Mucus Urine 2+ /hpf; Urobilinogen Urine Norm (Negative); WBC Urine 0-4 /hpf (0-5)
[2022-08-26 17:38] LABS: Alanine Aminotransferase 14 U/L (0-41); Albumin Level 4.8 g/dL (3.5-5.2); Alkaline Phosphatase 64 U/L (40-130); Anion Gap 18.2 (5-19); Aspartate Amino Transferase 18 U/L (0-40); Blood Urea Nitrogen 23 mg/dL (6-20); Calcium 9.6 mg/dL (8.5-10.5); Carbon Dioxide 24 mmol/L (22-29); Chloride 96 mmol/L (98-107); Globulin 3.1 g/dL (1.3-4.6); Glomerular Filtration Rate 70.6 mL/min (90-130); Glucose 80 mg/dL (65-115); Lipase 20 U/L (13-60); Osmolality Calculated 281 mOsm/kg (285-295); Potassium 4.2 mmol/L (3.5-5.1); Sodium 134 mmol/L (136-145); Total Bilirubin 0.5 mg/dL (0.15-1.2); Total Protein 7.9 g/dL (6.6-8.7)
--- NOTE | 2022-08-26 17:40 | CTR_ITS ---
PROCEDURE INFORMATION: Exam: CT Abdomen And Pelvis Without Contrast Exam date and time: 08/26/2022 6:00 PM Age: 31 years old Clinical indication: Nausea and vomiting and other: Diarrhea; Abdominal pain; Other: Umbilical; Additional info: Umbilical area abdominal pain, n/v/d TECHNIQUE: Imaging protocol: Computed tomography of the abdomen and pelvis without contrast. Radiation optimization: All CT scans at this facility use at least one of these dose optimization techniques: automated exposure control; mA and/or kV adjustment per patient size (includes targeted exams where dose is matched to clinical indication); or iterative reconstruction. COMPARISON: CR XR chest 2V* [id number] 08/17/2019 7:05 AM RADIATION DOSE METRICS: Total DLP (mGy-cm): 311.53 FINDINGS: Lungs: Small left basilar adhesions. Liver: Normal. No mass. Gallbladder and bile ducts: Normal. No calcified stones. No ductal dilation. Pancreas: Normal. No ductal dilation. Spleen: Normal. No splenomegaly. Adrenal glands: Normal. No mass. Kidneys and ureters: Normal. No hydronephrosis. Stomach and bowel: Unremarkable. No obstruction. No mucosal thickening. Some fluid is seen within bowel. Appendix: The appendix is visualized. No evidence of appendicitis. Intraperitoneal space: Unremarkable. No free air. No significant fluid collection. Vasculature: Unremarkable. No abdominal aortic aneurysm. Lymph nodes: Suggestion of mild increased mesenteric lymph nodes without significant overall enlargement. Urinary bladder: Unremarkable as visualized. Reproductive: Unremarkable as visualized. Bones/joints: Unremarkable. No acute fracture. Soft tissues: Unremarkable. Other findings: A few benign splenic calcified granulomas. CT/CT abdomen pelvis con [id number] IMPRESSION: 1. Suggestion of mild increased mesenteric lymph nodes without significant overall enlargement, consider mesenteric adenitis. 2. Some fluid is seen within bowel, which can be associated with gastroenteritis or diarrhea. 3. No CT findings to indicate appendicitis or other acute findings.
[2022-08-26] MEDS: sodium chloride 0.9% 1,000 ML 999 ML IV (17:54)
--- NOTE | 2022-08-26 17:54 | PC.ADMIT ---
[address] Admission Note: The patient,Sam Barrios,31 y/o, was given written information regarding hospital policies, unit procedures and contact persons. Patient's smoking status: current every day smoker. Vital Signs - 8 hr 08/26/22 14:13 Temperature 97.7 F Pulse Rate 78 Respiratory Rate 18 Blood Pressure 154/102 Pulse Oximetry 99 Oxygen Delivery Method Room Air
[2022-08-26] MEDS: ondansetron 2 mg/ML SDV 2 mL 4 MG IVP (17:55)
[2022-08-26] MEDS: morphine 4 mg/mL SDV 1 mL IVP (17:55)
== END 2022-08-26 19:41 | disposition home or self-care (01) ==
PROVIDERS: Physician Assistant; Emergency Provider Physician Assistant
DX: A08.4 Viral intestinal infection, unspecified (principal); F17.210 Nicotine dependence, cigarettes, uncomplicated
CPT/HCPCS: 74176; 80053; 81001; 83690; 85025; 96361; 96374; 96375; 99284; J2270; J2405; J7030